=== PATIENT | female | born 1950 | race Caucasian/White ===

== ENCOUNTER → 2017-02-20 | Outpatient (CLI) | payer MEDICARE, OTHER | END | disposition home or self-care (01) | LOC: PCVCCLINIC 13:49 | PROVIDERS: ATTEND Internal Medicine | DX: I10 Essential (primary) hypertension (principal); R94.31 Abnormal electrocardiogram [ECG] [EKG]; E78.5 Hyperlipidemia, unspecified; T78.3XXD Angioneurotic edema, subsequent encounter; E03.9 Hypothyroidism, unspecified; Z98.51 Tubal ligation status; Z87.891 Personal history of nicotine dependence; Z79.899 Other long term (current) drug therapy; Z88.8 Allergy status to other drugs, medicaments and biological substances | CPT/HCPCS: 93005; G0463 ==

== ENCOUNTER → 2017-02-28 | Outpatient (CLI) | payer MEDICARE ==
[~2017-02-28] MED LIST: SULFUR HEXAFLUORIDE MICROSPHR 25 MG VIAL. IVP ONE
--- NOTE | 2017-03-06 15:48 | PCVCIMAG ---
APPROVED REPORT Study performed: 02/28/2017 08:57:52 EXAM: Comprehensive 2D, Doppler, and color-flow Echocardiogram Patient Location: Echo lab Status: routine Other Information Study Quality: Technically Limited Indications Abnormal EKG Echo Enhancing Agent Comments: Lumason was used to assess wall motion and ejection fraction. 2D Dimensions IVSd: 11.48 (7-11mm) LVDd: 47.08 mm PWd: 9.69 (7-11mm)Ascending Ao: 37.31 (22-36mm) LVDs: 38.72 (25-40mm) Left Atrium: 38.39 (27-40mm) Aortic Root: 33.25 mm LV Single Plane 4CH: 40.79 % Merritt's LVEF: 36.96 % Volumes Left Atrial Volume (Systole) Single Plane 4CH: 49.51 mLSingle Plane 2CH: 64.82 mL Aortic Valve AoV Peak Juan Antonio.: 1.69 m/s AO Peak Gr.: 11.41 mmHgLVOT Max P.94 mmHg LVOT Max V: 0.86 m/s Mitral Valve E/A Ratio: 1.1 MV Decel. Time: 242.79 ms MV E Max Juan Antonio.: 0.68 m/s MV A Juan Antonio.: 0.62 m/s Pulmonary Valve PV Peak Gr.: 1.66 mmHg Left Ventricle The left ventricle is normal size. There is normal LV segmental wall motion. There is normal left ventricular wall thickness. Left ventricular ejection fraction is lower limits of normal. LVEF is 50%. The left ventricular diastolic function is normal. Right Ventricle The right ventricle is normal size. The right ventricular systolic function is normal. Atria The left atrium size is normal. The right atrium size is normal. Aortic Valve The aortic valve is normal in structure. No aortic regurgitation is present. There is no aortic valvular stenosis. Mitral Valve The mitral valve is normal in structure. There is no mitral valve regurgitation noted. No evidence of mitral valve stenosis. Tricuspid Valve The tricuspid valve is normal in structure. There is no tricuspid valve regurgitation noted. Pulmonic Valve The pulmonary valve is normal in structure. There is no pulmonic valvular regurgitation. Great Vessels The aortic root is normal in size. IVC is normal in size and collapses with >50% inspiration Pericardium There is no pericardial effusion. <Conclusion> Left ventricular ejection fraction is lower limits of normal. There is normal LV segmental wall motion. LVEF is 50%. The aortic valve is normal in structure. No aortic valvular insufficiency or stenosis. The mitral valve is normal in structure. No mitral valve regurgitation noted. Pulmonary artery pressure could not be relialby ascertained There is no pericardial effusion.
== END | disposition home or self-care (01) ==
LOC: PCVCIMAG 08:45
PROVIDERS: ATTEND Internal Medicine
DX: R94.31 Abnormal electrocardiogram [ECG] [EKG] (principal); I10 Essential (primary) hypertension; E78.5 Hyperlipidemia, unspecified; E03.9 Hypothyroidism, unspecified; Z98.51 Tubal ligation status; Z87.891 Personal history of nicotine dependence
CPT/HCPCS: 93306; Q9950